=== PATIENT | female | born 1990 | race Caucasian/White ===

== ENCOUNTER 2022-03-08 06:21 | Day surgery (SDC) | payer MEDICAID ==
[2022-03-05 12:18] LABS: HCG,QUAL RESULT NEGATIVE (NEGATIVE)
[~2022-03-08] VITALS: Ht 157.5 cm; Wt 117.9 kg
[2022-03-08] MEDS ORDERED: ACETAMINOPHEN I.V. 1000 MG 100 ML IV ONE (08:27)
[2022-03-08] MEDS ORDERED: HYDROmorphone 1 MG/ML INJ. CARTRIDGE IVP PRN (09:15)
[2022-03-08] MEDS ORDERED: LR 1,000 ML IV SCH (09:15)
[2022-03-08] MEDS ORDERED: hydrALAZINE HCL 20 MG/ML VIAL IVP PRN (09:15)
[2022-03-08] MEDS ORDERED: MEPERIDINE HCL/PF 25 MG/ML DISP.SYRIN IVP PRN (09:15)
[2022-03-08] MEDS ORDERED: METOCLOPRAMIDE HCL 10 MG/2 ML VIAL IVP PRN (09:15)
[2022-03-08] MEDS ORDERED: LABETALOL 100 MG/ 20ML VIAL IVP PRN (09:15)
[2022-03-08] MEDS ORDERED: NS 1000 ML IV.SOLN IV ONE (10:34)
[2022-03-08] MEDS ORDERED: LIDOCAINE/EPI 1% 1:100000 20 ML VIAL INJ ONE (10:34)
[2022-03-08] MEDS ORDERED: ONDANSETRON HCL 4 MG/2 ML VIAL IVP ONE (10:34)
[2022-03-08] MEDS ORDERED: OXYMETAZOLINE HCL 0.05% NASAL SPRAY NS ONE (10:34)
[2022-03-08] MEDS ORDERED: fentaNYL CITRATE 250 MCG/5 ML AMP IV ONE (10:34)
[2022-03-08] MEDS ORDERED: SUGAMMADEX SODIUM 200 MG/2 ML VIAL IV ONE (10:34)
[2022-03-08] MEDS ORDERED: LR 1,000 ML IV.SOLN IV ONE (10:34)
[2022-03-08] MEDS ORDERED: DESFLURANE 15 MIN GAS INH ONE (10:34)
[2022-03-08] MEDS ORDERED: MIDAZOLAM HCL 5 MG/5 ML VIAL IVP ONE (10:34)
[2022-03-08] MEDS ORDERED: NS IRRIG SOLN 1000 ML IR ONE (10:34)
[2022-03-08] MEDS ORDERED: PROPOFOL 200MG/ 20ML VIAL (DIPRIVAN) IV ONE (10:34)
[2022-03-08] MEDS ORDERED: ROCURONIUM BROMIDE 10 MG/ML (ZEMURON) IV ONE (10:34)
[2022-03-08] MEDS ORDERED: DEXAMETHASONE SOD PHOSPHATE 4 MG/ML VIAL IVP ONE (10:34)
[2022-03-08] MEDS ORDERED: WATER FOR IRRIGATION,STERILE 1,000 ML IRRIG.SOLN IR ONE (10:34)
[2022-03-08] MEDS ORDERED: LIDOCAINE 2%, 20 ML MDV INJ ONE (10:34)
[2022-03-08] MEDS ORDERED: LEVOFLOXACIN 500 mg/D5W 100 mL IVPB IV ONE (10:34)
[2022-03-08] MEDS ORDERED: HYDROmorphone 1 MG/ML INJ. CARTRIDGE ONE (11:08)
[2022-03-08] MEDS: HYDROmorphone 1 MG/ML INJ. CARTRIDGE IVP PRN ×3 (11:43→12:10)
[2022-03-08 16:25] VITALS: BP_SYST 143
== END 2022-03-08 16:15 | disposition home or self-care (01) ==
LOC: SDS 06:21 → SMU 06:21 → SDS 16:15
PROVIDERS: ATTEND Otolaryngology
DX: D38.5 Neoplasm of uncertain behavior of other respiratory organs (principal); J34.2 Deviated nasal septum; J32.4 Chronic pansinusitis; J30.1 Allergic rhinitis due to pollen; E66.01 Morbid (severe) obesity due to excess calories; Z68.42 Body mass index [BMI] 45.0-49.9, adult; Z79.899 Other long term (current) drug therapy; Z20.822 Contact with and (suspected) exposure to COVID-19
CPT/HCPCS: 84703; 36415 ×2; 31298; 31255; 31256; 31240; 30140; 30520; 87070; 87075; 87186; 87101; 88304; 88305; 88311; 87426; U0003; J3490; J1100; J1956; J2001; J2250; J2405; J2704; J3010; J1170; J7120; J7030; C1726; J0131